=== PATIENT | female | born 1965 | race Caucasian/White ===

== ENCOUNTER → 2021-10-03 | Outpatient (REF) | payer OTHER ==
[~2021-10-03] MED LIST: BENA25CA4 PO; HAIR1CHW2 PO; LORA-243 PO; MELA5CAP2 PO; TAMO20TA8 PO; VALS1TAB67 PO
[2021-10-03 14:12] LABS: HEPATITIS B CORE ANTIBODY IGM NEGATIVE (NEGATIVE); HEPATITIS B SURFACE ANTIGEN NEGATIVE (NEGATIVE); HEPATITIS C VIRUS ABY INDEX 0.1 INDEX (<0.8)
== END ==
LOC: M LAB REF 12:03
PROVIDERS: ATTEND Nurse Practitioner Adult Health
DX: R74.8 Abnormal levels of other serum enzymes (principal)

== ENCOUNTER → 2021-10-05 | Outpatient (CLI) | payer OTHER | LOC: M ONCR 12:42 | PROVIDERS: ATTEND Radiology Radiation Oncology | DX: C50.412 Malignant neoplasm of upper-outer quadrant of left female breast (principal); Z79.899 Other long term (current) drug therapy ==

== ENCOUNTER → 2021-10-06 | Outpatient (CLI) | payer OTHER | LOC: M RAD 10:42 | PROVIDERS: ATTEND Internal Medicine Gastroenterology | DX: R93.5 Abnormal findings on diagnostic imaging of other abdominal regions, including retroperitoneum (principal); R94.5 Abnormal results of liver function studies ==

== ENCOUNTER → 2021-10-10 | Outpatient (REF) | payer OTHER ==
[2021-10-10 17:55] LABS: INR 0.9; PROTHROMBIN TIME 12.6 SECONDS (12.7-14.5)
[2021-10-10 17:56] LABS: PARTIAL THROMBOPLASTIN TIME 28.3 SECONDS (25.9-37.0)
[2021-10-10 18:15] LABS: PERCENT SATURATION 24.8 % (13.2-45.0); TOTAL PROTEIN 7.6 GM/DL (6.4-8.2)
== END ==
LOC: M LAB REF 16:26
PROVIDERS: ATTEND Nurse Practitioner Adult Health
DX: R74.01 Elevation of levels of liver transaminase levels (principal); R94.5 Abnormal results of liver function studies

== ENCOUNTER → 2021-11-09 | Outpatient (RCR) | payer OTHER | LOC: M ONCR 10-20 13:55 | PROVIDERS: ATTEND General Practice | DX: C50.412 Malignant neoplasm of upper-outer quadrant of left female breast (principal) ==

== ENCOUNTER 2021-11-28 15:57 | Outpatient (RCR) | payer OTHER ==
[~2021-11-28 15:57] MED LIST changes: +CHLO25TA PO
== END 2021-12-09 ==
LOC: M ONCR 15:57
PROVIDERS: ATTEND General Practice
DX: C50.412 Malignant neoplasm of upper-outer quadrant of left female breast (principal)

== ENCOUNTER → 2022-02-09 | Outpatient (CLI) | payer OTHER ==
[~2022-02-09] MED LIST changes: +GASTROGRAFIN SOLUTION 30ML (Q9963) ONE; +ISOVUE-370 76% 100ML VIAL ONE
== END ==
LOC: M PLAIMG 09:06
PROVIDERS: ATTEND Internal Medicine Gastroenterology
DX: R10.84 Generalized abdominal pain (principal); R94.5 Abnormal results of liver function studies; R74.01 Elevation of levels of liver transaminase levels; K76.89 Other specified diseases of liver
CPT/HCPCS: 74160; Q9963; Q9967

== ENCOUNTER 2022-04-20 11:39 | Inpatient (IN) | payer OTHER ==
[~2022-04-20] VITALS: Ht 162.6 cm; Wt 52.1 kg
[~2022-04-20 11:39] MED LIST changes: -GASTROGRAFIN SOLUTION 30ML (Q9963) ONE; -ISOVUE-370 76% 100ML VIAL ONE
[2022-04-20] MEDS ORDERED: NS 1,560 ML in IV 1 EA IV ONE (12:00)
[2022-04-20] MEDS ORDERED: ONDANSETRON 4MG 2ML VIAL IV ONE (12:00)
[2022-04-20] MEDS: MORPHINE 2 MG/ML 1ML VIAL IV PRN ×2 (12:16→12:55)
[2022-04-20] MEDS ORDERED: ISOVUE-370 76% 100ML VIAL As Ordered ONE (12:18)
[2022-04-20 12:24] LABS: BASO % 0.2 % (0.0-1.0); HEMATOCRIT 48.1 % (36.0-47.0); HEMOGLOBIN 15.9 g/dl (12.0-15.5); LYMPH # 0.5 10^3/uL (1.5-5.0); LYMPH % 4.6 % (24.0-44.0); MEAN CORPUSCULAR HEMOGLOBIN 30.3 pg (27.0-33.0); MEAN CORPUSCULAR HGB CONC 33.1 g/dl (32.0-36.5); MEAN CORPUSCULAR VOLUME 91.6 fl (80.0-96.0); MONO # 0.6 10^3/uL (0.0-0.8); MONO % 5.5 % (2.0-8.0); NEUTROPHILS % 89.3 % (36.0-66.0); PLATELET COUNT, AUTOMATED 310 10^3/uL (150-450); RED BLOOD COUNT 5.25 10^6/uL (4.00-5.40)
[2022-04-20 12:56] LABS: ALBUMIN 4.2 GM/DL (3.2-5.2); ALT/SGPT 61 U/L (12-78); BILIRUBIN,DIRECT 0.2 MG/DL (0.0-0.2); BILIRUBIN,TOTAL 0.9 MG/DL (0.2-1.0); BLOOD UREA NITROGEN 14 MG/DL (7-18); CALCIUM LEVEL 10.7 MG/DL (8.5-10.1); CARBON DIOXIDE LEVEL 27 MEQ/L (21-32); CHLORIDE LEVEL 103 MEQ/L (98-107); CREATININE FOR GFR 0.77 MG/DL (0.55-1.30); GLOMERULAR FILTRATION RATE > 60.0 (>51); GLUCOSE, FASTING 133 MG/DL (70-100); LIPASE 166 U/L (73-393); SODIUM LEVEL 137 MEQ/L (136-145); TOTAL PROTEIN 8.4 GM/DL (6.4-8.2)
[2022-04-20 13:02] LABS: RSV AMPLIFICATION NEGATIVE (NEGATIVE)
[2022-04-20] MEDS ORDERED: HYDR-643 PO (13:46)
[2022-04-20] MEDS ORDERED: RAMI1CAP26 PO (13:47)
[2022-04-20] MEDS ORDERED: HOME MED LIST COMPLETE! XX SCH (13:50)
[2022-04-20] MEDS ORDERED: MORPHINE 2 MG/ML 1ML VIAL IV PRN (14:35)
[2022-04-20] MEDS ORDERED: MORPHINE 4 MG/ML 1ML VIAL/SYRINGE IV PRN (14:40)
[2022-04-20 15:20] VITALS: BP 150/82
[2022-04-20] MEDS: LR 1,000 ML IV SCH (15:38)
[2022-04-20] MEDS: ONDANSETRON 4MG 2ML VIAL IV PRN (18:18)
[2022-04-20] MEDS ORDERED: KETOROLAC 30 MG/ML 1ML VIAL IV ONE (18:40)
[2022-04-20] MEDS ORDERED: PANTOPRAZOLE 40MG VIAL IV SCH (19:00)
[2022-04-20 19:45] VITALS: BP 145/84
[2022-04-20] MEDS: PANTOPRAZOLE 40MG VIAL IV SCH (20:43)
[2022-04-20] MEDS: TAMOXIFEN CITRATE 10 MG TAB PO SCH (20:43)
[2022-04-20 20:45] VITALS: BP 145/84
[2022-04-20] MEDS ORDERED: ramipriL 5 MG CAP PO SCH (21:00)
[2022-04-21] MEDS: LR 1,000 ML IV SCH ×3 (01:54→23:43)
[2022-04-21 02:00] VITALS: BP 138/76
[2022-04-21 04:47] VITALS: BP 139/86
[2022-04-21] MEDS: ONDANSETRON 4MG 2ML VIAL IV PRN ×4 (04:58→23:43)
[2022-04-21] MEDS: KETOROLAC 30 MG/ML 1ML VIAL IV PRN ×4 (05:06→23:42)
[2022-04-21 06:30] LABS: HEMOGLOBIN 14.1 g/dl (12.0-15.5); MEAN CORPUSCULAR HEMOGLOBIN 30.9 pg (27.0-33.0); MEAN CORPUSCULAR HGB CONC 33.6 g/dl (32.0-36.5); MEAN CORPUSCULAR VOLUME 91.9 fl (80.0-96.0); PLATELET COUNT, AUTOMATED 224 10^3/uL (150-450); RED BLOOD COUNT 4.57 10^6/uL (4.00-5.40); WHITE BLOOD COUNT 5.4 10^3/uL (4.0-10.0)
[2022-04-21 06:41] LABS: BASOPHILS 3 % (0-1); EOSINOPHILS 6 % (0-3); LYMPHOCYTES 12 % (16-44); MONOCYTES 12 % (0-5); NEUTROPHILS 64 % (28-66)
[2022-04-21 06:42] LABS: PLATELET CLUMPS SMALL AMT; PLATELET ESTIMATE NORMAL (NORMAL)
[2022-04-21 08:00] LABS: BLOOD UREA NITROGEN 19 MG/DL (7-18); CALCIUM LEVEL 8.9 MG/DL (8.5-10.1); CARBON DIOXIDE LEVEL 29 MEQ/L (21-32); CHLORIDE LEVEL 107 MEQ/L (98-107); CREATININE FOR GFR 0.76 MG/DL (0.55-1.30); GLOMERULAR FILTRATION RATE > 60.0 (>51); GLUCOSE, FASTING 121 MG/DL (70-100); POTASSIUM SERUM 4.2 MEQ/L (3.5-5.1); SODIUM LEVEL 139 MEQ/L (136-145)
[2022-04-21] MEDS: ENOXAPARIN 40MG/0.4ML SYRINGE (J1650 PER 10MG) SC SCH (09:26)
[2022-04-21 14:00] VITALS: BP 119/73
[2022-04-21 20:01] VITALS: BP 121/74
[2022-04-21] MEDS: PANTOPRAZOLE 40MG VIAL IV SCH (20:50)
[2022-04-21] MEDS ORDERED: ramipriL 5 MG CAP NG SCH (21:00)
[2022-04-21] MEDS: TAMOXIFEN CITRATE 10 MG TAB PO SCH (21:00)
[2022-04-22] MEDS ORDERED: GLUCAGON INJ 1MG VIAL SC PRN (00:25)
[2022-04-22] MEDS ORDERED: DEXTROSE 50% 50 ML SYRINGE IV PRN (00:25)
[2022-04-22] MEDS ORDERED: GLUCOSE 4GM CHEW TABLET PO PRN (00:25)
[2022-04-22] MEDS: D5W/0.9% SODIUM CHLORIDE 1,000 ML IV SCH ×3 (00:42→20:43)
[2022-04-22 05:51] LABS: HEMATOCRIT 39.6 % (36.0-47.0); MEAN CORPUSCULAR HEMOGLOBIN 30.7 pg (27.0-33.0); MEAN CORPUSCULAR HGB CONC 32.8 g/dl (32.0-36.5); MEAN CORPUSCULAR VOLUME 93.4 fl (80.0-96.0); PLATELET COUNT, AUTOMATED 220 10^3/uL (150-450); RED BLOOD COUNT 4.24 10^6/uL (4.00-5.40); WHITE BLOOD COUNT 3.3 10^3/uL (4.0-10.0)
[2022-04-22 05:56] VITALS: BP 146/88
[2022-04-22] MEDS: ONDANSETRON 4MG 2ML VIAL IV PRN (06:10)
[2022-04-22 06:18] LABS: BLOOD UREA NITROGEN 22 MG/DL (7-18); CALCIUM LEVEL 8.5 MG/DL (8.5-10.1); CARBON DIOXIDE LEVEL 29 MEQ/L (21-32); CHLORIDE LEVEL 105 MEQ/L (98-107); CREATININE FOR GFR 0.76 MG/DL (0.55-1.30); GLOMERULAR FILTRATION RATE > 60.0 (>51); GLUCOSE, FASTING 121 MG/DL (70-100); POTASSIUM SERUM 3.8 MEQ/L (3.5-5.1); SODIUM LEVEL 139 MEQ/L (136-145)
[2022-04-22 06:29] LABS: ATYPICAL LYMPH 1 % (0-5); EOSINOPHILS 2 % (0-3); LYMPHOCYTES 26 % (16-44); MONOCYTES 16 % (0-5); NEUTROPHILS 52 % (28-66); PLATELET ESTIMATE NORMAL (NORMAL)
[2022-04-22] MEDS: KETOROLAC 30 MG/ML 1ML VIAL IV PRN ×3 (09:08→20:44)
[2022-04-22] MEDS: METOCLOPRAMIDE INJ 10MG/2ML VIAL (J2765 PER 1) IV SCH ×3 (09:08→20:44)
[2022-04-22] MEDS: ENOXAPARIN 40MG/0.4ML SYRINGE (J1650 PER 10MG) SC SCH (09:09)
[2022-04-22 14:00] VITALS: BP 122/71
[2022-04-22 20:00] VITALS: BP 121/69
[2022-04-22] MEDS: PANTOPRAZOLE 40MG VIAL IV SCH (20:43)
[2022-04-22] MEDS: TAMOXIFEN CITRATE 10 MG TAB PO SCH (20:44)
[2022-04-23] MEDS: METOCLOPRAMIDE INJ 10MG/2ML VIAL (J2765 PER 1) IV SCH ×4 (02:54→20:36)
[2022-04-23] MEDS: D5W/0.9% SODIUM CHLORIDE 1,000 ML IV SCH (02:55)
[2022-04-23] MEDS: KETOROLAC 30 MG/ML 1ML VIAL IV PRN ×2 (03:18→09:52)
[2022-04-23 06:43] LABS: HEMATOCRIT 37.2 % (36.0-47.0); HEMOGLOBIN 12.2 g/dl (12.0-15.5); MEAN CORPUSCULAR HGB CONC 32.8 g/dl (32.0-36.5); MEAN CORPUSCULAR VOLUME 94.7 fl (80.0-96.0); PLATELET COUNT, AUTOMATED 209 10^3/uL (150-450); RED BLOOD COUNT 3.93 10^6/uL (4.00-5.40); WHITE BLOOD COUNT 4.5 10^3/uL (4.0-10.0)
[2022-04-23 07:29] LABS: ATYPICAL LYMPH 1 % (0-5); EOSINOPHILS 1 % (0-3); LYMPHOCYTES 8 % (16-44); MONOCYTES 13 % (0-5); NEUTROPHILS 63 % (28-66)
[2022-04-23 07:31] LABS: PLATELET ESTIMATE NORMAL (NORMAL)
[2022-04-23 07:42] LABS: BLOOD UREA NITROGEN 19 MG/DL (7-18); CALCIUM LEVEL 8.1 MG/DL (8.5-10.1); CARBON DIOXIDE LEVEL 29 MEQ/L (21-32); CHLORIDE LEVEL 107 MEQ/L (98-107); CREATININE FOR GFR 0.67 MG/DL (0.55-1.30); GLOMERULAR FILTRATION RATE > 60.0 (>51); GLUCOSE, FASTING 123 MG/DL (70-100); POTASSIUM SERUM 3.4 MEQ/L (3.5-5.1); SODIUM LEVEL 138 MEQ/L (136-145)
[2022-04-23 08:23] LABS: BASO % 0.2 % (0.0-1.0); EOS # 0.1 10^3/uL (0.0-0.5); LYMPH # 0.5 10^3/uL (1.5-5.0); LYMPH % 10.7 % (24.0-44.0); MONO # 0.8 10^3/uL (0.0-0.8); MONO % 17.9 % (2.0-8.0)
[2022-04-23] MEDS: ENOXAPARIN 40MG/0.4ML SYRINGE (J1650 PER 10MG) SC SCH (09:48)
[2022-04-23] MEDS: KCL 40MEQ IN D5/NS 1000ML 1,000 ML IV SCH ×2 (09:49→20:37)
[2022-04-23 10:00] VITALS: BP 126/78
[2022-04-23 14:00] VITALS: BP 127/71
[2022-04-23 20:23] VITALS: BP 127/68
[2022-04-23] MEDS: TAMOXIFEN CITRATE 10 MG TAB PO SCH (20:37)
[2022-04-23] MEDS: PANTOPRAZOLE 40MG VIAL IV SCH (20:37)
[2022-04-24] MEDS: METOCLOPRAMIDE INJ 10MG/2ML VIAL (J2765 PER 1) IV SCH ×4 (04:15→20:42)
[2022-04-24 06:25] LABS: BASO % 0.2 % (0.0-1.0); EOS # 0.2 10^3/uL (0.0-0.5); EOS % 4.2 % (0.0-3.0); HEMATOCRIT 34.3 % (36.0-47.0); HEMOGLOBIN 11.2 g/dl (12.0-15.5); LYMPH # 0.5 10^3/uL (1.5-5.0); LYMPH % 13.2 % (24.0-44.0); MEAN CORPUSCULAR HEMOGLOBIN 30.8 pg (27.0-33.0); MEAN CORPUSCULAR HGB CONC 32.7 g/dl (32.0-36.5); MEAN CORPUSCULAR VOLUME 94.2 fl (80.0-96.0); MONO # 0.7 10^3/uL (0.0-0.8); MONO % 16.1 % (2.0-8.0); NEUTROPHILS # 2.7 10^3/uL (1.5-8.5); NEUTROPHILS % 65.8 % (36.0-66.0); PLATELET COUNT, AUTOMATED 199 10^3/uL (150-450); RED BLOOD COUNT 3.64 10^6/uL (4.00-5.40); WHITE BLOOD COUNT 4.1 10^3/uL (4.0-10.0)
[2022-04-24] MEDS: KCL 40MEQ IN D5/NS 1000ML 1,000 ML IV SCH ×2 (06:34→17:14)
[2022-04-24 06:45] VITALS: BP 129/77
[2022-04-24 07:02] LABS: BLOOD UREA NITROGEN 13 MG/DL (7-18); CALCIUM LEVEL 8.2 MG/DL (8.5-10.1); CARBON DIOXIDE LEVEL 28 MEQ/L (21-32); CHLORIDE LEVEL 110 MEQ/L (98-107); CREATININE FOR GFR 0.48 MG/DL (0.55-1.30); GLOMERULAR FILTRATION RATE > 60.0 (>51); GLUCOSE, FASTING 108 MG/DL (70-100); SODIUM LEVEL 139 MEQ/L (136-145)
[2022-04-24] MEDS: ENOXAPARIN 40MG/0.4ML SYRINGE (J1650 PER 10MG) SC SCH (08:53)
[2022-04-24] MEDS ORDERED: NEULUMEX 0.1% SUSPENSION 450ML BOTTLE (FORMERLY VOLUMEN) As Ordered ONE (13:33)
[2022-04-24] MEDS ORDERED: GLUCAGON INJ 1MG VIAL As Ordered ONE (13:33)
[2022-04-24] MEDS ORDERED: ISOVUE-370 76% 100ML VIAL As Ordered ONE (14:53)
[2022-04-24 15:59] VITALS: BP 138/86
[2022-04-24] MEDS: TAMOXIFEN CITRATE 10 MG TAB PO SCH (20:41)
[2022-04-24] MEDS: PANTOPRAZOLE 40MG VIAL IV SCH (20:42)
[2022-04-24] MEDS: CHLORASEPTIC SPRAY MT PRN (21:01)
[2022-04-24 22:00] VITALS: BP 140/82
[2022-04-25] MEDS: METOCLOPRAMIDE INJ 10MG/2ML VIAL (J2765 PER 1) IV SCH ×4 (02:08→20:31)
[2022-04-25] MEDS: KCL 40MEQ IN D5/NS 1000ML 1,000 ML IV SCH ×2 (02:08→15:36)
[2022-04-25 06:00] VITALS: BP 112/52
[2022-04-25 07:07] LABS: BASO % 0.6 % (0.0-1.0); EOS # 0.1 10^3/uL (0.0-0.5); EOS % 3.7 % (0.0-3.0); HEMATOCRIT 31.8 % (36.0-47.0); HEMOGLOBIN 10.5 g/dl (12.0-15.5); LYMPH # 0.6 10^3/uL (1.5-5.0); LYMPH % 16.1 % (24.0-44.0); MEAN CORPUSCULAR VOLUME 93.8 fl (80.0-96.0); MONO # 0.6 10^3/uL (0.0-0.8); MONO % 17.5 % (2.0-8.0); NEUTROPHILS # 2.2 10^3/uL (1.5-8.5); NEUTROPHILS % 61.5 % (36.0-66.0); PLATELET COUNT, AUTOMATED 180 10^3/uL (150-450); RED BLOOD COUNT 3.39 10^6/uL (4.00-5.40); WHITE BLOOD COUNT 3.5 10^3/uL (4.0-10.0)
[2022-04-25 07:35] LABS: BLOOD UREA NITROGEN 6 MG/DL (7-18); CALCIUM LEVEL 7.8 MG/DL (8.5-10.1); CARBON DIOXIDE LEVEL 27 MEQ/L (21-32); CHLORIDE LEVEL 111 MEQ/L (98-107); CREATININE FOR GFR 0.47 MG/DL (0.55-1.30); GLOMERULAR FILTRATION RATE > 60.0 (>51); GLUCOSE, FASTING 110 MG/DL (70-100); POTASSIUM SERUM 4.1 MEQ/L (3.5-5.1); SODIUM LEVEL 139 MEQ/L (136-145)
[2022-04-25] MEDS: CHLORASEPTIC SPRAY MT PRN (09:42)
[2022-04-25] MEDS: ENOXAPARIN 40MG/0.4ML SYRINGE (J1650 PER 10MG) SC SCH (09:43)
[2022-04-25 14:00] VITALS: BP 141/82
[2022-04-25] MEDS: TAMOXIFEN CITRATE 10 MG TAB PO SCH (20:31)
[2022-04-25] MEDS: PANTOPRAZOLE 40MG VIAL IV SCH (20:31)
[2022-04-25 20:48] VITALS: BP 142/83
[2022-04-26] MEDS: METOCLOPRAMIDE INJ 10MG/2ML VIAL (J2765 PER 1) IV SCH ×4 (02:59→20:46)
[2022-04-26 06:00] VITALS: BP 138/85
[2022-04-26 06:10] LABS: BASO % 0.7 % (0.0-1.0); EOS # 0.1 10^3/uL (0.0-0.5); EOS % 5.1 % (0.0-3.0); HEMATOCRIT 31.9 % (36.0-47.0); HEMOGLOBIN 10.6 g/dl (12.0-15.5); LYMPH # 0.6 10^3/uL (1.5-5.0); LYMPH % 21.2 % (24.0-44.0); MEAN CORPUSCULAR HEMOGLOBIN 31.2 pg (27.0-33.0); MEAN CORPUSCULAR HGB CONC 33.2 g/dl (32.0-36.5); MEAN CORPUSCULAR VOLUME 93.8 fl (80.0-96.0); MONO # 0.6 10^3/uL (0.0-0.8); MONO % 21.2 % (2.0-8.0); NEUTROPHILS # 1.4 10^3/uL (1.5-8.5); NEUTROPHILS % 51.1 % (36.0-66.0); PLATELET COUNT, AUTOMATED 168 10^3/uL (150-450); WHITE BLOOD COUNT 2.7 10^3/uL (4.0-10.0)
[2022-04-26 06:50] LABS: BLOOD UREA NITROGEN 6 MG/DL (7-18); CALCIUM LEVEL 7.8 MG/DL (8.5-10.1); CARBON DIOXIDE LEVEL 24 MEQ/L (21-32); CHLORIDE LEVEL 112 MEQ/L (98-107); CREATININE FOR GFR 0.43 MG/DL (0.55-1.30); GLOMERULAR FILTRATION RATE > 60.0 (>51); GLUCOSE, FASTING 87 MG/DL (70-100); POTASSIUM SERUM 4.3 MEQ/L (3.5-5.1); SODIUM LEVEL 141 MEQ/L (136-145)
[2022-04-26] MEDS ORDERED: MIRALAX *UNIT DOSE* 17GM PACKET PO ONE (08:30)
[2022-04-26] MEDS: ENOXAPARIN 40MG/0.4ML SYRINGE (J1650 PER 10MG) SC SCH (09:28)
[2022-04-26] MEDS: CHLORASEPTIC SPRAY MT PRN (09:28)
[2022-04-26] MEDS: KCL 40MEQ IN D5/NS 1000ML 1,000 ML IV SCH (09:32)
[2022-04-26 17:01] VITALS: BP 138/79
[2022-04-26] MEDS: TAMOXIFEN CITRATE 10 MG TAB PO SCH (20:46)
[2022-04-26] MEDS: PANTOPRAZOLE 40MG VIAL IV SCH (20:46)
[2022-04-26 22:00] VITALS: BP 119/56
[2022-04-27] MEDS: METOCLOPRAMIDE INJ 10MG/2ML VIAL (J2765 PER 1) IV SCH ×3 (02:47→15:33)
[2022-04-27 05:37] LABS: BASO % 0.7 % (0.0-1.0); EOS # 0.1 10^3/uL (0.0-0.5); EOS % 4.4 % (0.0-3.0); HEMATOCRIT 30.1 % (36.0-47.0); LYMPH # 0.6 10^3/uL (1.5-5.0); LYMPH % 20.9 % (24.0-44.0); MEAN CORPUSCULAR HEMOGLOBIN 30.9 pg (27.0-33.0); MEAN CORPUSCULAR HGB CONC 33.2 g/dl (32.0-36.5); MEAN CORPUSCULAR VOLUME 92.9 fl (80.0-96.0); MONO # 0.7 10^3/uL (0.0-0.8); MONO % 21.9 % (2.0-8.0); NEUTROPHILS # 1.5 10^3/uL (1.5-8.5); NEUTROPHILS % 51.4 % (36.0-66.0); PLATELET COUNT, AUTOMATED 174 10^3/uL (150-450); RED BLOOD COUNT 3.24 10^6/uL (4.00-5.40)
[2022-04-27 06:00] VITALS: BP 135/84
[2022-04-27 06:12] LABS: BLOOD UREA NITROGEN 5 MG/DL (7-18); CALCIUM LEVEL 7.8 MG/DL (8.5-10.1); CARBON DIOXIDE LEVEL 26 MEQ/L (21-32); CHLORIDE LEVEL 111 MEQ/L (98-107); CREATININE FOR GFR 0.47 MG/DL (0.55-1.30); GLOMERULAR FILTRATION RATE > 60.0 (>51); GLUCOSE, FASTING 93 MG/DL (70-100); POTASSIUM SERUM 3.9 MEQ/L (3.5-5.1); SODIUM LEVEL 142 MEQ/L (136-145)
[2022-04-27] MEDS: KCL 40MEQ IN D5/NS 1000ML 1,000 ML IV SCH (07:31)
[2022-04-27] MEDS: ENOXAPARIN 40MG/0.4ML SYRINGE (J1650 PER 10MG) SC SCH (08:50)
[2022-04-27 14:00] VITALS: BP 136/84
[2022-04-27 20:47] VITALS: BP 139/79
[2022-04-27] MEDS: PANTOPRAZOLE 40MG VIAL IV SCH (20:56)
[2022-04-27] MEDS: TAMOXIFEN CITRATE 10 MG TAB PO SCH (20:56)
[2022-04-28] MEDS: METOCLOPRAMIDE 10MG TAB PO SCH ×3 (00:18→06:02)
[2022-04-28 05:50] VITALS: BP 135/94
[2022-04-28] MEDS: ENOXAPARIN 40MG/0.4ML SYRINGE (J1650 PER 10MG) SC SCH (08:37)
[2022-04-28] MEDS ORDERED: REGL5TAB2 PO (10:41)
[2022-04-28] MEDS ORDERED: MIRA3350 PO (10:41)
== END 2022-04-28 12:47 | disposition home or self-care (01) | DRG 390 ==
LOC: M ED 11:39 → M ED INP 13:20 → ENRESERV 13:50 → M MSPAV 15:20
PROVIDERS: ADMIT Internal Medicine Nephrology; ATTEND Internal Medicine
DX: K56.609 Unspecified intestinal obstruction, unspecified as to partial versus complete obstruction (principal); K56.7 Ileus, unspecified; Z79.810 Long term (current) use of selective estrogen receptor modulators (SERMs); Z85.3 Personal history of malignant neoplasm of breast; Z79.899 Other long term (current) drug therapy; Z88.8 Allergy status to other drugs, medicaments and biological substances; I10 Essential (primary) hypertension; K21.9 Gastro-esophageal reflux disease without esophagitis; Z86.16 Personal history of COVID-19; Z20.822 Contact with and (suspected) exposure to COVID-19; K59.00 Constipation, unspecified

== ENCOUNTER → 2022-05-08 | Outpatient (REF) | payer OTHER ==
[~2022-05-08] MED LIST changes: +HYDR-643 PO; +MIRA3350 PO; +RAMI1CAP26 PO; +REGL5TAB2 PO
== END ==
LOC: M LAB REF 12:07
PROVIDERS: ATTEND Nurse Practitioner Adult Health
DX: K56.609 Unspecified intestinal obstruction, unspecified as to partial versus complete obstruction (principal); R94.5 Abnormal results of liver function studies; R74.8 Abnormal levels of other serum enzymes

== ENCOUNTER → 2022-05-25 | Outpatient (CLI) | payer OTHER ==
[~2022-05-25] MED LIST changes: +E-Z-PAQUE 96% w/w SUSP 176GM BTL As Ordered ONE
== END ==
LOC: M RAD 08:23
PROVIDERS: ATTEND Internal Medicine Gastroenterology
DX: R10.84 Generalized abdominal pain (principal)

== ENCOUNTER → 2022-05-30 | Outpatient (CLI) | payer OTHER ==
[~2022-05-30] MED LIST changes: -E-Z-PAQUE 96% w/w SUSP 176GM BTL As Ordered ONE
== END ==
LOC: M ONCR 15:19
PROVIDERS: ATTEND General Practice
DX: Z08 Encounter for follow-up examination after completed treatment for malignant neoplasm (principal); Z85.3 Personal history of malignant neoplasm of breast; L59.8 Other specified disorders of the skin and subcutaneous tissue related to radiation; Z79.810 Long term (current) use of selective estrogen receptor modulators (SERMs); Z79.811 Long term (current) use of aromatase inhibitors; Z79.899 Other long term (current) drug therapy; Z88.8 Allergy status to other drugs, medicaments and biological substances; Z92.3 Personal history of irradiation

== ENCOUNTER → 2022-08-23 | Outpatient (REF) | payer OTHER ==
[2022-08-23 13:02] LABS: ESTRADIOL < 19.0 PG/ML; FOLLICLE STIMULATING HORMONE 33.1 mIU/ML; LUTEINIZING HORMONE 19.7 mIU/ML
== END ==
LOC: M LAB REF 12:02
PROVIDERS: ATTEND Nurse Practitioner Adult Health
DX: C50.412 Malignant neoplasm of upper-outer quadrant of left female breast (principal); R94.5 Abnormal results of liver function studies

== ENCOUNTER → 2022-11-09 | Outpatient (REF) | payer MEDICARE, OTHER | LOC: M SFHCDERM 08:30 | PROVIDERS: ATTEND Dermatology | DX: C44.519 Basal cell carcinoma of skin of other part of trunk (principal) ==

== ENCOUNTER → 2022-11-22 | Outpatient (REF) | payer OTHER, MEDICARE | LOC: M LAB REF 12:34 | PROVIDERS: ATTEND Nurse Practitioner Adult Health | DX: R94.5 Abnormal results of liver function studies (principal) ==

== ENCOUNTER → 2023-04-25 | Outpatient (REF) | payer OTHER, MEDICARE ==
[2023-04-25 12:25] LABS: C REACTIVE PROTEIN QUANTITATIV < 0.40 MG/DL (<1.0)
[2023-04-26 15:09] LABS: ANTINUCLEAR ANTIBODIES DIRECT Negative (Negative)
== END ==
LOC: M LAB REF 11:44
PROVIDERS: ATTEND Nurse Practitioner Adult Health
DX: R74.01 Elevation of levels of liver transaminase levels (principal); I73.00 Raynaud's syndrome without gangrene

== ENCOUNTER → 2023-05-16 | Outpatient (CLI) | payer OTHER, MEDICARE ==
[~2023-05-16] MED LIST changes: +CLIN150C17 PO
== END ==
LOC: M ONCR 15:27
PROVIDERS: ATTEND General Practice
DX: L03.313 Cellulitis of chest wall (principal); C50.412 Malignant neoplasm of upper-outer quadrant of left female breast

== ENCOUNTER → 2024-06-24 | Outpatient (REF) | payer OTHER ==
[~2024-06-24] MED LIST changes: +RAMI10CA64 PO; -RAMI1CAP26 PO
== END ==
LOC: M LAB REF 13:30
PROVIDERS: ATTEND Nurse Practitioner Adult Health
DX: R74.01 Elevation of levels of liver transaminase levels (principal)

== ENCOUNTER → 2024-08-10 | Outpatient (REF) | payer OTHER ==
[2024-08-11 13:22] LABS: PERCENT SATURATION 12.5 % (13.2-45.0)
[2024-08-11 13:25] LABS: FERRITIN 6.9 NG/ML (7.3-270.7); FOLATE 20.8 NG/ML (>5.4)
== END ==
LOC: M LAB REF 12:22
PROVIDERS: ATTEND Nurse Practitioner Adult Health
DX: C50.412 Malignant neoplasm of upper-outer quadrant of left female breast (principal)

== ENCOUNTER → 2025-02-23 | Outpatient (REF) | payer OTHER ==
[2025-02-23 15:12] LABS: IRON (FE) 75.0 UG/DL (50-170); PERCENT SATURATION 19.1 % (13.2-45.0)
== END ==
LOC: M LAB REF 14:28
PROVIDERS: ATTEND Nurse Practitioner Adult Health
DX: C50.412 Malignant neoplasm of upper-outer quadrant of left female breast (principal)